=== PATIENT | male | born 1995 | race Caucasian/White ===

== ENCOUNTER 2019-07-02 04:16 | Observation (INO) ==
[2019-07-02 05:02] LABS: Basophils # (auto) 0.02 K/uL (0-0.2); Basophils % (auto) 0.2 %; Eosinophils % (auto) 0.9 %; Hematocrit (blood only) 47.7 % (42-52); Hemoglobin 16.6 g/dL (14.0-18.0); Immature Granulocytes # (auto) 0.03 K/uL (0.00-0.02); Immature Granulocytes % (auto) 0.3 %; Mean Corpuscular Hemoglobin 29.1 pg (25-34); Mean Corpuscular Hgb Conc 34.8 g/dL (32-36); Mean Corpuscular Volume 83.5 fL (80-100); Mean Platelet Volume 9.7 fL (7.4-10.4); Monocytes # (auto) 0.99 K/uL (0.11-0.59); Monocytes % (auto) 8.8 %; Neutrophils % (auto) 73.8 %; Platelet Count 188 K/uL (130-400); Red Blood Count 5.71 M/uL (4.7-6.1); White Blood Count 11.24 K/uL (4.8-10.8)
[2019-07-02 05:09] LABS: Appearance Urine Cloudy (Clear); Bacteria Urine Automated Negative (Negative); Blood Urine Negative (Negative); Cast Urine Automated 0 /lpf (0-5); Color Urine Dark Yellow; Glucose Urine UA Negative (Negative); Ketones Urine Negative (Negative); Leukocyte Esterase Urine Negative (Negative); Nitrite Urine Negative (Negative); Protein Urine Negative (Negative); RBC Urine Automated 0-4 /hpf (0-4); Specific Gravity Urine 1.029 (1.000-1.030); Urobilinogen Urine Negative (Negative)
[2019-07-02 05:10] LABS: Albumin Level 4.4 gm/dl (3.4-5.0); BUN Creatinine Ratio 17.5 (10-20); Creatinine Clr Calc Pharmacy 115.7 ml/min; Est GFR (Non-African American) 91.5; Potassium 3.7 mmol/L (3.5-5.1)
[2019-07-02 05:13] LABS: Albumin Globulin Ratio 1.2 (0.9-2); Bilirubin,Total 1.2 mg/dl (0.2-1); Globulin 3.6 gm/dl (2.5-4.0)
[2019-07-02] MEDS ORDERED: ACETAMINOPHEN 1,000 MG/100 ML VIAL IV STA (05:24)
[2019-07-02] MEDS ORDERED: ONDANSETRON INJ 2 MG/ML 2 ML VIAL IV STA (05:24)
[2019-07-02] MEDS ORDERED: SODIUM CHLORIDE 0.9% 1000ML 1,000 ML IV ONE (05:24)
--- NOTE | 2019-07-02 06:13 | Emergency Department Note ---
Entered by Jey French acting as a scribe for Helena Roberto DO History of Present Illness General Chief complaint: Abdominal Pain Stated complaint: SHARP ABDOMINAL PAIN Time Seen by Provider: 07/02/19 04:46 Source: patient History of Present Illness Onset (ago): day(s) (a few days ago) Location: abdomen Pain Consistency: + intermittent Maximum Pain Intensity: 8 Exacerbated By: + movement Associated symptoms: + other (Positive for nausea, "lots of burping," and black diarrhea. Negative for bloating, vomiting, fever, chills, and urinary symptoms.) The patient is a 24 year old male who presents to the emergency department with complaints of intermittent abdominal pain beginning a few days ago. The patient states that he has had abdominal pain, worst just right of his bellybutton, for the last few days. He notes that his pain worsened last night at 1900. He reports that movement worsens his pain and he states that it does not radiate into his testicles. He also complains of nausea and lots of burping. He notes that he has had 2-3 episodes of black diarrhea a day for the last 2-3 days. He denies any bloating, vomiting, fever, chills, urinary symptoms, new foods, and known sick contacts. He reports that he has not been taking anything for his pain. The patient states that he does not have a personal or family history of intestinal problems. States rare occasional heartburn, none recently. Home Medications Home Medications Medication Instructions Recorded Confirmed Type No Known Home Medications 07/02/19 07/02/19 History oxycodone-acetaminophen [Percocet] 1 tab PO Q4H PRN #18 tab 07/02/19 Rx Allergies Allergy/AdvReac Type Severity Reaction Status Date / Time No Known Allergies Allergy Unverified 07/02/19 05:23 Past Med/Surg History Medical History No chronic problems Family History Other No significant family history Social History (Updated 07/02/19 @ 05:19 by Jey French) Preferred Language: Lithuanian Communication Ability: Effective Heavy Forger Required: No Beliefs That Will Affect Care: None Current Living Situation: Family current occupational status: employed Other Information That Helps Us Care for You: No Feels Safe at Home: Yes Safety Concerns: Feels Safe At This Time Smoking Status: Never smoker Hx Alcohol Use: Yes Alcohol type: beer Hx Substance Use: No Review of Systems See HPI for pertinent positives & negatives. and A total of 10 systems reviewed and were otherwise negative Physical Exam Vital Signs Vital Signs - 24 hr 07/02/19 04:21 07/02/19 06:27 07/02/19 08:02 Temperature 36.6 C 36.7 C Temperature Source Oral Oral Pulse Rate 54 L Pulse Rate [Right Finger] 58 L 60 Pulse Rhythm [Right Finger] Pulse Strength [Right Finger] Respiratory Rate 18 16 16 Respiratory Effort / Characteristics Non-Labored Spontaneous Non-Labored Spontaneous Respiratory Depth Normal Normal Respiratory Pattern Regular Blood Pressure 117/78 Blood Pressure [Left Arm] 105/48 L 118/74 Blood Pressure Mean 91 Blood Pressure Mean [Left Arm] 67 88 Blood Pressure Position [Left Arm] Lying Pulse Oximetry 99 99 98 Oxygen Delivery Method Room Air Room Air Room Air Sepsis Recent Fever Within 48 Hours No Sepsis New/Unexplained Change in Mental Status No Sepsis Action Taken by Nursing No Action Required 07/02/19 09:14 07/02/19 09:51 Temperature 36.7 C 36.7 C Temperature Source Oral Oral Pulse Rate Pulse Rate [Right Finger] 69 78 Pulse Rhythm [Right Finger] Regular Pulse Strength [Right Finger] Normal Respiratory Rate 16 20 Respiratory Effort / Characteristics Non-Labored Spontaneous Respiratory Depth Normal Respiratory Pattern Regular Blood Pressure Blood Pressure [Left Arm] 136/73 154/78 H Blood Pressure Mean Blood Pressure Mean [Left Arm] 94 103 Blood Pressure Position [Left Arm] Sitting Pulse Oximetry 97 99 Oxygen Delivery Method Room Air Room Air Sepsis Recent Fever Within 48 Hours Sepsis New/Unexplained Change in Mental Status Sepsis Action Taken by Nursing GENERAL: alert, well appearing, well nourished, no distress, non-toxic EYE EXAM: normal conjunctiva, PERRL and EOM's grossly intact OROPHARYNX: no exudate, no erythema, lips, buccal mucosa, and tongue normal and mucous membranes are moist NECK: supple, no nuchal rigidity, no adenopathy, non-tender LUNGS: Clear to auscultation. Normal chest wall mechanics HEART: no murmurs, S1 normal and S2 normal ABDOMEN: abdomen soft, normo-active bowel sounds, no masses, no rebound or guarding. Tenderness to RLQ and right lateral mid abdomen. BACK: Back is symmetrical on inspection and there is no deformity, no midline tenderness, no CVA tenderness. SKIN: no rashes and no bruising UPPER EXTREMITIES: upper extremities are grossly normal. FROM, nml pulses b/l. LOWER EXTREMITIES: No pitting edema. FROM, nml pulses b/l. NEURO EXAM: Normal sensorium, cranial nerves II-XII grossly intact, normal speech, no gross weakness of arms, no gross weakness of legs. Course Course 0501: The patient was evaluated in room A11. A complete history and physical exam was performed. 705: I reevaluated and updated the patient. No diarrhea here. Pain improved. 729: The patient was signed out to Dr. Fuchs at the change of shift. Pt awaiting CT. Administered Medications Discontinued Medications Bacitracin (Bacitracin) Confirm Administered Dose 45 appln .ROUTE .STK-MED ONE Stop: 07/02/19 10:04 Last Admin: 07/02/19 11:15 Dose: 45 appln Documented by: [id number] Bupivacaine HCl (Marcaine 0.5% Mpf) Confirm Administered Dose 30 ml .ROUTE .STK- MED ONE Stop: 07/02/19 10:04 Last Admin: 07/02/19 11:16 Dose: 20 ml Documented by: [id number] Famotidine (Pepcid 20mg Iv Push) 20 mg IV ONE STA Stop: 07/02/19 07:02 Last Admin: 07/02/19 07:14 Dose: 20 mg Documented by: [id number] Sodium Chloride (Nss 1000ml) 1,000 mls @ 999 mls/hr IV .Q1H1M ONE Stop: 07/02/19 06:24 Last Infusion: 07/02/19 06:28 Dose: 0 mls/hr Documented by: [id number] Admin: 07/02/19 05:33 Dose: 999 mls/hr Documented by: [id number] Acetaminophen (Ofirmev) 1,000 mg in 100 mls @ 400 mls/hr IV NOW STA Stop: 07/02/19 05:38 Last Infusion: 07/02/19 05:55 Dose: 0 mls/hr Documented by: [id number] Admin: 07/02/19 05:33 Dose: 400 mls/hr Documented by: [id number] Cefoxitin Sodium (Mefoxin) 2,000 mg in 60 mls @ 100 mls/hr IV NOW STA Stop: 07/02/19 08:52 Last Admin: 07/02/19 08:49 Dose: Not Given Documented by: [id number] Piperacillin Sod/Tazobactam (Sod 3.375 gm/ Dextrose) 100 ml in 115 mls @ 230 mls/hr IV NOW STA Stop: 07/02/19 09:09 Last Infusion: 07/02/19 12:43 Dose: 0 mls/hr Documented by: [id number] Admin: 07/02/19 09:15 Dose: 230 mls/hr Documented by: [id number] Cefoxitin Sodium 2,000 mg/ (Dextrose) 60 mls @ 100 mls/hr IV Q6H [facility] Stop: 07/03/19 12:59 Last Infusion: 07/02/19 15:11 Dose: 0 mls/hr Documented by: [id number] Admin: 07/02/19 14:25 Dose: 100 mls/hr Documented by: [id number] Ioversol (Optiray 320 100ml) 94 ml IV ONCE PRN PRN Reason: Interaction Checking Stop: 07/06/19 07:40 Last Admin: 07/02/19 07:42 Dose: 94 ml Documented by: [id number] Lidocaine HCl (Xylocaine 1% (Local)) Confirm Administered Dose 20 ml .ROUTE .STK-MED ONE Stop: 07/02/19 10:05 Last Admin: 07/02/19 11:17 Dose: 20 ml Documented by: [id number] Ondansetron HCl (Zofran) 4 mg IV NOW STA Stop: 07/02/19 05:25 Last Admin: 07/02/19 05:33 Dose: 4 mg Documented by: [id number] Medical Decision Making Differential Diagnosis Differential diagnosis: Etiologies such as biliary colic, cholecystitis, hepatitis, pancreatitis, cardiac disease, pancreatitis, gastritis, peptic ulcer disease, appendicitis, cystitis, diverticulitis, mesenteric ischemia, inflammatory bowel disease, ileus, bowel obstruction, testicular torsion, aortic pathology, shingles, as well as others were considered. Medical Records Attestation: I reviewed the patient's medical records. Home Medications Current Medication List: was personally reviewed by me Laboratory Data Attestation: I reviewed the patient's lab results. Result diagrams: 07/02/19 04:32 07/02/19 04:32 Lab Results 07/02/19 07/02/19 07/02/19 Range/Units 04:30 04:32 04:32 WBC 11.24 H (4.8-10.8) K/uL RBC 5.71 (4.7-6.1) M/uL Hgb 16.6 (14.0-18.0) g/dL Hct 47.7 (42-52) % MCV 83.5 (80-100) fL MCH 29.1 (25-34) pg MCHC 34.8 (32-36) g/dL RDW Std Deviation 39.0 (36.4-46.3) fL RDW Coeff of Mary 13.0 (11.5-14.5) % Plt Count 188 (130-400) K/uL MPV 9.7 (7.4-10.4) fL Immature Gran % (Auto) 0.3 % Neut % (Auto) 73.8 % Lymph % (Auto) 16.0 % [place] % (Auto) 8.8 % Eos % (Auto) 0.9 % Baso % (Auto) 0.2 % Immature Gran # (Auto) 0.03 H (0.00-0.02) K/uL Neut # (Auto) 8.30 H (1.4-6.5) K/uL Lymph # (Auto) 1.80 (1.2-3.4) K/uL [place] # (Auto) 0.99 H (0.11-0.59) K/uL Eos # (Auto) 0.10 (0-0.5) K/uL Baso # (Auto) 0.02 (0-0.2) K/uL Sodium 139 (136-145) mmol/L Potassium 3.7 (3.5-5.1) mmol/L Chloride 106 (98-107) mmol/L Carbon Dioxide 32 (21-32) mmol/L Anion Gap 1.0 L (3-11) BUN 20 H (7-18) mg/dl Creatinine 1.12 (0.6-1.4) mg/dl Est Cr Clr Drug Dosing 115.7 ml/min Est GFR ( Amer) 106.0 Est GFR (Non-Af Amer) 91.5 BUN/Creatinine Ratio 17.5 (10-20) Glucose 95 (70-99) mg/dl Calcium 9.0 (8.5-10.1) mg/dl Total Bilirubin 1.2 H (0.2-1) mg/dl AST 20 (15-37) U/L ALT 32 (12-78) U/L Alkaline Phosphatase 97 (45-117) U/L Total Protein 8.0 (6.4-8.2) gm/dl Albumin 4.4 (3.4-5.0) gm/dl Globulin 3.6 (2.5-4.0) gm/dl Albumin/Globulin Ratio 1.2 (0.9-2) Lipase 89 (73-393) U/L Urine Color Dark Yellow Urine Appearance Cloudy A (Clear) Urine pH 6.0 (4.5-7.5) Ur Specific [place] 1.029 (1.000-1.030) Urine Protein Negative (Negative) Urine Glucose (UA) Negative (Negative) Urine Ketones Negative (Negative) Urine Blood Negative (Negative) Urine Nitrite Negative (Negative) Urine Bilirubin Negative (Negative) Urine Urobilinogen Negative (Negative) Ur Leukocyte Esterase Negative (Negative) Urine WBC (Auto) 1-5 (0-5) /hpf Urine RBC (Auto) 0-4 (0-4) /hpf U Hyaline Cast (Auto) 0 (0-5) /lpf U Epithel Cells (Auto) 5-10 H (0-5) /lpf Urine Bacteria (Auto) Negative (Negative) Blood Pressure Blood Pressure Findings: Normal blood pressure Blood Pressure Disposition: did not require urgent referral MDM Narrative Patient presenting with abdominal pain of unclear etiology. Patient with abdominal tenderness on bedside exam. Patient hemodynamically stable. No recurrent diarrhea while here. Patient signed out to Dr. Fuchs awaiting CT of the abdomen pelvis to rule out acute pathology. I did discuss differential diagnosis with the patient at bedside and he verbalized understanding. Patient otherwise well-appearing while in the emergency room. Impression & Plan Abdominal pain, Diarrhea Discharge Plan Visit Data *Final* Discharge Date/Time: 07/02/19 09:21 Chief Complaint: Abdominal Pain Stated Complaint: SHARP ABDOMINAL PAIN ED Provider: Luis Miguel Fuchs Discharge Problem: Abdominal pain, Diarrhea Patient Disposition: Still a Patient Discharge Instructions Interventions: ED Discharge Assessment Last Done: 07/02/19 09:21 Discharge Problem: Abdominal pain Qualifiers: Abdominal location: unspecified location Qualified Code(s): R10.9 - Unspecified abdominal pain Diarrhea Qualifiers: Diarrhea type: unspecified type Qualified Code(s): R19.7 - Diarrhea, unspecified The scribe's documentation has been prepared under my direction and personally reviewed by me in its entirety. I confirm that the note above accurately reflects all work, treatment, procedures, and medical decision making performed by me.
[2019-07-02 06:15] LABS: Bilirubin Urine Negative (Negative); Ictotest Urine Negative (Negative)
[2019-07-02] MEDS ORDERED: FAMOTIDINE 20MG/5ML IV PUSH IV STA (07:01)
[2019-07-02] MEDS ORDERED: IOVERSOL 100ml IV PRN (07:41)
--- NOTE | 2019-07-02 07:58 | CT Scan Report ---
CT abd pelvis oral and IV con CLINICAL HISTORY: abd pain, melena, diarrhea COMPARISON STUDY: None. TECHNIQUE: The patient was scanned following administration of dilute oral contrast, and in a dynamic helical fashion during intravenous administration of 94 cc of Optiray 320. A dose lowering techniqu e was utilized adhering to the principles of ALARA. CT DOSE: 459.69 mGy.cm FINDINGS: Lower chest: The heart is normal in size and configuration, without pericardial effusion. The lung ba ses and pleural spaces are clear. Liver: The contrast-enhanced liver is normal in size, contour, and attenuation. There is no intrahepa tic biliary ductal dilatation. The hepatic veins and portal veins are patent. Gallbladder: Unremarkable. Spleen: Normal in size and attenuation. Pancreas: Unremarkable. Adrenal glands: Unremarkable. Kidneys: There is symmetric renal cortical enhancement. The kidneys are normal in size without hydron ephrosis. Bowel: There are no transition zones to indicate bowel obstruction. There is no evidence of acute div erticulitis. There is cecal tip edema, and infiltration of periappendiceal fat. The appendix is mildl y thickened measuring 9 mm. There is minimal thickening of the terminal ileum which may be secondary phenomena. The appendiceal findings are concerning for acute appendicitis and surgical consultation i s advocated. Peritoneum: There is no intraperitoneal free air or abdominal ascites. Vasculature: The abdominal aorta is normal in course and caliber. Adenopathy: None. Pelvic viscera: The bladder, and pelvic viscera are unremarkable. Skeletal structures: No destructive osseous lesions are seen. IMPRESSION: 1. Thickened appendix with periappendiceal stranding and cecal tip edema. The findings are concerning for acute appendicitis and surgical consultation is advocated. 2. Minor thickening of the terminal ileum, a finding which likely is a secondary phenomenon to acute appendicitis. ACT 112: Negative or not required by law. Electronically signed by: Russell Allen M.D. 07/02/2019 7:57 AM
[2019-07-02] MEDS ORDERED: cefOXitin 2,000 MG/60 ML BAG IV STA (08:17)
--- NOTE | 2019-07-02 08:17 | Emergency Department Note ---
Entered by Jory Ayala acting as a scribe for Luis Miguel Fuchs DO ED Visit Note Patient is a 24-year-old male signed out to me by Dr. victoria with right lower quadrant pain diarrhea and dark tarry stools. I performed a rectal exam and it was heme-negative. He is acutely tender in the right lower quadrant with rebound and guarding. CT abdomen pelvis was completed and showed acute appendicitis with some surrounding inflammatory change. He rested comfortably. Updated bedside. Discussed with general surgery and a be evaluated for further work-up. : Abdominal pain Qualifiers: Abdominal location: unspecified location Qualified Code(s): R10.9 - Unspecified abdominal pain Diarrhea Qualifiers: Diarrhea type: unspecified type Qualified Code(s): R19.7 - Diarrhea, unspecified The scribe's documentation has been prepared under my direction and personally reviewed by me in its entirety. I confirm that the note above accurately reflects all work, treatment, procedures, and medical decision making performed by me.
[2019-07-02] MEDS ORDERED: PIPERACILL/TAZOBAC CONSULT ACTIVE PRN (08:40)
[2019-07-02] MEDS ORDERED: PIPERACILLIN/TAZOBACTAM 3.375 GM in DEXTROSE 5% 100 ML/100 ML BAG IV STA (08:40)
--- NOTE | 2019-07-02 09:10 | History & Physical Report ---
Date of Service July 02, 2019 Assessment & Plan (1) Acute appendicitis: 24 year-old otherwise healthy male resident of [place] who presented to ED with 3 day history of increasing RLQ abdominal pain with associated diarrhea and anorexia. CT scan showing dilated appendix at 9mm with periappendiceal stranding concerning for acute appendicitis. Plan: Patient is not a resident in [place] and is in location only today for a local job and then traveling to [place] tomorrow by car and then flight for 5 hours to another area in [place] for work for 3.5 weeks. [address] with patient CT scan findings and his duration of symptoms and recommendations of laparoscopic appendectomy to prevent perforation or sepsis. Also discussed IV antibiotics as sole treatment however that usually would consist of hospital stay for a few days. Given his circumstance he would like to proceed with appendectomy today. Will try to get him schedule early this morning so hopefully if procedure goes well and pain controlled he can be discharged later this evening for his travels tomorrow. If procedure difficulty or signs of perforation than his postop course could change and he understands this. IV Zosyn stat/preop Will go to med/surg post op Discussed post op restrictions and care Recommend JANEL stockings for travel, abdominal binder, and dressings upon discharge Will need to call patient with pathology reports. Discussed with Dr. Perales who agrees with above and is to see patient preoperatively. History of Present Illness Chief Complaint: RLQ abdominal pain Primary Care Provider: NO PCP Jay is a very pleasant 24 year-old male from [place] who is in the area for work who presented to emergency department with complaint of increasing right lower abdominal pain that started Sunday and progressively increased. Associated diarrhea and anorexia. Has never had similar pain in past. Movement makes pain worse. Works with [employer] and is traveling to [place] tomorrow for 3.5 weeks for work. Has flight scheduled tomorrow. Denies of fever, chills, nausea, vomiting, chest pain, shortness of breath, difficulty urinating, blood in stools, or blood in urine. No prior abdominal surgeries no home medications. ER work-up included labs which showed mild leukocytosis of 11k. Afebrile in ED. CT scan of abdomen and pelvis with oral and IV contrast showing dilated appendix at 9 mm with periappendiceal fat stranding and some thickening of the tip fo cecum and terminal ileum likely reactive from acute appendicitis. No evidence of perforation or abscess. Allergies Allergy/AdvReac Type Severity Reaction Status Date / Time No Known Allergies Allergy Unverified 07/02/19 05:23 Home Medications Home Medications Medication Instructions Recorded Confirmed Type No Known Home Medications 07/02/19 07/02/19 History Past Med/Surg History Family History (Updated 07/02/19 @ 05:19 by Jey French) Other No significant family history Social History (Updated 07/02/19 @ 05:19 by Jey French) Preferred Language: South Korean Communication Ability: Effective Vinyl Hanger Required: No Beliefs That Will Affect Care: None Current Living Situation: Family current occupational status: employed Other Information That Helps Us Care for You: No Feels Safe at Home: Yes Safety Concerns: Feels Safe At This Time Smoking Status: Never smoker Hx Alcohol Use: Yes Alcohol type: beer Hx Substance Use: No Review of Systems Review of Systems: All systems reviewed & are unremarkable except as noted in HPI & below Physical Exam Constitutional: WD/WN, vitals as above no acute distress Respiratory: normal respiratory effort, lungs clear to auscultation Cardiovascular: RRR, no murmur, no edema Gastrointestinal (Abdomen): Inspection/Auscultation: abdomen normal to inspection; abdomen not distended Percussion/Palpation: + abdomen tender (RLQ) and abdomen soft; no guarding and abdomen not rigid Skin: no rashes, warm and dry Psychiatric: A+Ox3, euthymic affect Results & Data Vital Signs (Past 12 Hours) Vital Signs Temp Pulse Pulse Resp BP BP Pulse Ox 07/02/19 06:27 36.7 C 58 L 16 105/48 L 99 07/02/19 04:21 36.6 C 54 L 18 117/78 99 Laboratory Results 07/02/19 07/02/19 07/02/19 Range/Units 04:32 04:32 04:30 WBC 11.24 H (4.8-10.8) K/uL RBC 5.71 (4.7-6.1) M/uL Hgb 16.6 (14.0-18.0) g/dL Hct 47.7 (42-52) % MCV 83.5 (80-100) fL MCH 29.1 (25-34) pg MCHC 34.8 (32-36) g/dL RDW Std Deviation 39.0 (36.4-46.3) fL RDW Coeff of Mary 13.0 (11.5-14.5) % Plt Count 188 (130-400) K/uL MPV 9.7 (7.4-10.4) fL Immature Gran % (Auto) 0.3 % Neut % (Auto) 73.8 % Lymph % (Auto) 16.0 % [place] % (Auto) 8.8 % Eos % (Auto) 0.9 % Baso % (Auto) 0.2 % Immature Gran # (Auto) 0.03 H (0.00-0.02) K/uL Neut # (Auto) 8.30 H (1.4-6.5) K/uL Lymph # (Auto) 1.80 (1.2-3.4) K/uL [place] # (Auto) 0.99 H (0.11-0.59) K/uL Eos # (Auto) 0.10 (0-0.5) K/uL Baso # (Auto) 0.02 (0-0.2) K/uL Sodium 139 (136-145) mmol/L Potassium 3.7 (3.5-5.1) mmol/L Chloride 106 (98-107) mmol/L Carbon Dioxide 32 (21-32) mmol/L Anion Gap 1.0 L (3-11) BUN 20 H (7-18) mg/dl Creatinine 1.12 (0.6-1.4) mg/dl Est Cr Clr Drug Dosing 115.7 ml/min Est GFR ( Amer) 106.0 Est GFR (Non-Af Amer) 91.5 BUN/Creatinine Ratio 17.5 (10-20) Glucose 95 (70-99) mg/dl Calcium 9.0 (8.5-10.1) mg/dl Total Bilirubin 1.2 H (0.2-1) mg/dl AST 20 (15-37) U/L ALT 32 (12-78) U/L Alkaline Phosphatase 97 (45-117) U/L Total Protein 8.0 (6.4-8.2) gm/dl Albumin 4.4 (3.4-5.0) gm/dl Globulin 3.6 (2.5-4.0) gm/dl Albumin/Globulin Ratio 1.2 (0.9-2) Lipase 89 (73-393) U/L Urine Color Dark Yellow Urine Appearance Cloudy A (Clear) Urine pH 6.0 (4.5-7.5) Ur Specific [place] 1.029 (1.000-1.030) Urine Protein Negative (Negative) Urine Glucose (UA) Negative (Negative) Urine Ketones Negative (Negative) Urine Blood Negative (Negative) Urine Nitrite Negative (Negative) Urine Bilirubin Negative (Negative) Urine Urobilinogen Negative (Negative) Ur Leukocyte Esterase Negative (Negative) Urine WBC (Auto) 1-5 (0-5) /hpf Urine RBC (Auto) 0-4 (0-4) /hpf U Hyaline Cast (Auto) 0 (0-5) /lpf U Epithel Cells (Auto) 5-10 H (0-5) /lpf Urine Bacteria (Auto) Negative (Negative) Diagnostic Findings CT abd pelvis oral and IV con CLINICAL HISTORY: abd pain, melena, diarrhea COMPARISON STUDY: None. TECHNIQUE: The patient was scanned following administration of dilute oral contrast, and in a dynamic helical fashion during intravenous administration of 94 cc of Optiray 320. A dose lowering technique was utilized adhering to the principles of ALARA. CT DOSE: 459.69 mGy.cm FINDINGS: Lower chest: The heart is normal in size and configuration, without pericardial effusion. The lung bases and pleural spaces are clear. Liver: The contrast-enhanced liver is normal in size, contour, and attenuation. There is no intrahepatic biliary ductal dilatation. The hepatic veins and portal veins are patent. Gallbladder: Unremarkable. Spleen: Normal in size and attenuation. Pancreas: Unremarkable. Adrenal glands: Unremarkable. Kidneys: There is symmetric renal cortical enhancement. The kidneys are normal in size without hydronephrosis. Bowel: There are no transition zones to indicate bowel obstruction. There is no evidence of acute diverticulitis. There is cecal tip edema, and infiltration of periappendiceal fat. The appendix is mildly thickened measuring 9 mm. There is minimal thickening of the terminal ileum which may be secondary phenomena. The appendiceal findings are concerning for acute appendicitis and surgical consultation is advocated. Peritoneum: There is no intraperitoneal free air or abdominal ascites. Vasculature: The abdominal aorta is normal in course and caliber. Adenopathy: None. Pelvic viscera: The bladder, and pelvic viscera are unremarkable. Skeletal structures: No destructive osseous lesions are seen. IMPRESSION: 1. Thickened appendix with periappendiceal stranding and cecal tip edema. The findings are concerning for acute appendicitis and surgical consultation is advocated. 2. Minor thickening of the terminal ileum, a finding which likely is a secondary phenomenon to acute appendicitis. Code Status & VTE Plan VTE Prophylaxis Plan VTE Prophylaxis will be ordered: Yes
[2019-07-02] MEDS ORDERED: ROCURONIUM BROMIDE 10 MG/ML 5 ML VIAL ONE (09:13)
[2019-07-02] MEDS ORDERED: LIDOCAINE HCL 2% 2 ML VIAL/AMP(20MG/ML) INFIL ONE (09:13)
[2019-07-02] MEDS ORDERED: MIDAZOLAM HCL 1 MG/ML 2ML VIAL ONE (09:13)
[2019-07-02] MEDS ORDERED: DEXAMETHASONE SOD INJ 4 MG/ML VIAL ONE (09:13)
[2019-07-02] MEDS ORDERED: NEOSTIGMINE METHYLSULFATE 5 MG/5 ML SYR ONE (09:13)
[2019-07-02] MEDS ORDERED: ONDANSETRON INJ 2 MG/ML 2 ML VIAL ONE (09:13)
[2019-07-02] MEDS ORDERED: GLYCOPYRROLATE 0.2 MG/ML VIAL ONE ×2 (09:13→10:52)
[2019-07-02] MEDS ORDERED: PROPOFOL IV EMULSION 10 MG/ML 20 ML VIAL IV ONE ×2 (09:13→10:50)
[2019-07-02] MEDS ORDERED: fentaNYL citrate 100 MCG/2 ML VIAL ONE ×3 (09:13→10:35)
--- NOTE | 2019-07-02 09:37 | History & Physical Bridge Note ---
Date of Service July 02, 2019 History & Physical Bridge Note I have examined the patient, reviewed the History & Physical and in the interval since the performance of the History & Physical I have noted the following changes of clinical significance: no changes noted, I saw pt, and reviewed pt's H/P labs, CT scan with pt, IMP: acute appendicitis, I recommend to do laparoscopic appendectomy possible open , D?W benefits, risks and alternatives of the surgery, the risks - infection, bleeding, injury jorge, abscess, pt understood, he agrees with the surgery, I answered all questions,
[2019-07-02] MEDS ORDERED: ATROPINE SULFATE 0.1 MG/ML 10ML SYR IV PRN (09:59)
[2019-07-02] MEDS ORDERED: ePHEDrine sulfate 50 MG/ML AMP IV PRN (09:59)
[2019-07-02] MEDS ORDERED: ONDANSETRON INJ 2 MG/ML 2 ML VIAL IV PRN ×2 (09:59→11:22)
[2019-07-02] MEDS ORDERED: fentaNYL citrate 100 MCG/2 ML VIAL IV PRN (09:59)
[2019-07-02] MEDS ORDERED: HYDROmorphone INJ 2 MG/ML SYR/VIAL IV PRN (09:59)
--- NOTE | 2019-07-02 09:59 | Anesthesiology Consultation ---
Date of Service July 02, 2019 Assessment & Plan Chart Review Chart Review: Acceptable Risk for Surgery ASA [id number] Proposed Anesthesia Anesthesia Type: General Risk / Benefits Reviewed With: PT / POA / Parent / Guardian, Accepts Plan and Informed Consent Obtained History Surgery Operation Date: 07/02/19 08:30 Proposed Procedures p Laparoscopic Appendectomy - Hellen Perales MD Height/Weight Height: 5 ft 10 in Weight: 91.5 kg Allergies Allergy/AdvReac Type Severity Reaction Status Date / Time No Known Allergies Allergy Unverified 07/02/19 05:23 Medications Home Medications Medication Instructions Recorded Confirmed Last Taken No Known Home Medications 07/02/19 07/02/19 Unknown Active Medications Generic Name Dose Route Start Last Admin Trade Name Freq PRN Reason Stop Dose Admin Ioversol 94 ml 07/02/19 07:41 07/02/19 07:42 Optiray 320 100ml IV 07/06/19 07:40 94 ml ONCE PRN Administration Interaction Checking NPO Date Last Intake of Fluids: 07/01/19 Time Last Intake of Fluids: 19:00 Last Intake of Fluids Comment: did have ct prep at er Date Last Intake of Solids: 07/01/19 Time Last Intake of Solids: 12:00 Past Medical History Medical History No chronic problems Exercise / Class Metabolic Activity II 4-5 Yardwork/Stairs/Walk up hill Past Family History Family History Other No significant family history Past Anesthesia History No Hx of Anesthesia Complications and No Family Hx of Anesthesia Complications History of PONV No Hx of PONV and No Hx of Motion Sickness Social History Smoking Status: Never smoker Hx Alcohol Use: Yes Alcohol type: beer alcohol intake frequency: a few times a month Hx Substance Use: No Review of Systems denies fever/cough/ colds/ chest pain/ SOB/ TOBIAS denies ND/CVA/Seizure Physical Exam Vital Signs Last Vital Signs Temp 36.7 C 07/02/19 09:51 Pulse 78 07/02/19 09:51 Resp 20 07/02/19 09:51 BP 154/78 H 07/02/19 09:51 Pulse Ox 99 07/02/19 09:51 ENMT Mouth: no TMJ abnormality and no dentition abnormality Thyromental Distance: > or= 3.5 Finger Breadths Mallampati Class: II Neck neck extension not limited Respiratory normal respiratory effort; no respiratory distress Auscultation: lungs clear to auscultation bilaterally Cardiovascular Rate/Rhythm: regular rate and regular rhythm Neurologic moves all extremities Psychiatric Orientation: alert and oriented x 3 Testing Laboratory Results 07/02/19 04:32 07/02/19 04:32 Urine Color Dark Yellow 07/02/19 04:30 Urine Appearance Cloudy (Clear) A 07/02/19 04:30 Urine pH 6.0 (4.5-7.5) 07/02/19 04:30 Ur Specific [place] 1.029 (1.000-1.030) 07/02/19 04:30 Urine Protein Negative (Negative) 07/02/19 04:30 Urine Glucose (UA) Negative (Negative) 07/02/19 04:30 Urine Ketones Negative (Negative) 07/02/19 04:30 Urine Nitrite Negative (Negative) 07/02/19 04:30 Ur Leukocyte Esterase Negative (Negative) 07/02/19 04:30 Urine WBC (Auto) 1-5 /hpf (0-5) 07/02/19 04:30 Urine RBC (Auto) 0-4 /hpf (0-4) 07/02/19 04:30 U Hyaline Cast (Auto) 0 /lpf (0-5) 07/02/19 04:30 U Epithel Cells (Auto) 5-10 /lpf (0-5) H 07/02/19 04:30 Urine Bacteria (Auto) Negative (Negative) 07/02/19 04:30
[2019-07-02] MEDS ORDERED: BUPIVACAINE 0.5 % 5 MG/1 ML MPF 30ML VIAL ONE (10:03)
[2019-07-02] MEDS ORDERED: BACITRACIN OINT 15 GM TUBE ONE (10:03)
[2019-07-02] MEDS ORDERED: LIDOCAINE HCL 1% 20 ML VIAL ONE (10:04)
[2019-07-02] MEDS ORDERED: KETOROLAC 30 MG/ML VIAL ONE (11:13)
--- NOTE | 2019-07-02 11:16 | Post Operative Brief Note ---
Immediate Post Op Note v1 Date of Surgery July 02, 2019 Pre & Post Diagnosis Operation Date: 07/02/19 08:30 Pre-Op Diagnosis: Acute Appendicitis Post-Op Diagnosis: Acute Appendicitis I identified the patient and participated in the time-out.: Yes Procedure Operation Date: 07/02/19 08:30 Actual Procedures p Laparoscopic Appendectomy - Hellen Perales MD Surgeon Hellen Perales MD Supervisor [employer] LUAN Dinh Estimated Blood Loss 10 Findings Consistent with Post-Op Diagnosis Fluids 1100ml Specimens appendix Anesthesia Type General Complications none Disposition Accompanied Patient To Recovery: Yes Disposition: Recovery Room Overlapping Procedure I was immediately available: during the entire case.
--- NOTE | 2019-07-02 12:05 | Anesthesiology Progress Note ---
Date of Service July 02, 2019 Anesthesia Post Procedure Vital Signs Vital Signs: Temp Pulse Pulse Pulse Resp BP BP 07/02/19 11:55 56 L 18 141/74 H 07/02/19 11:45 61 18 143/70 H 07/02/19 11:39 36.1 C L 79 20 150/70 H 07/02/19 09:51 36.7 C 78 20 154/78 H 07/02/19 09:14 36.7 C 69 16 136/73 07/02/19 08:02 60 16 118/74 07/02/19 06:27 36.7 C 58 L 16 105/48 L 07/02/19 04:21 36.6 C 54 L 18 117/78 Pulse Ox 07/02/19 11:55 100 07/02/19 11:45 100 07/02/19 11:39 100 07/02/19 09:51 99 07/02/19 09:14 97 07/02/19 08:02 98 07/02/19 06:27 99 07/02/19 04:21 99 Pain Intensity Abdomen: Pain Intensity: 2 Transfer of Care Handoff Completed per policy Notes Mental Status: alert / awake / arousable and participated in evaluation Patient Amnestic to Procedure: Yes Nausea / Vomiting: adequately controlled Pain: adequately controlled Airway Patency, RR, SpO2: stable & adequate BP & HR: stable & adequate Hydration State: stable & adequate Anesthetic Complications: no major complications apparent and Pt Satisfied with anesthetic care
--- NOTE | 2019-07-02 12:06 | Operative Report ---
DATE OF OPERATION: 07/02/2019 PREOPERATIVE DIAGNOSIS: Acute appendicitis. POSTOPERATIVE DIAGNOSIS: Acute appendicitis. OPERATION: Laparoscopic appendectomy. SURGEON: Hellen Perales MD. DEDENTER: Esthela Ashley PA-C. ANESTHESIA: General. ESTIMATED BLOOD LOSS: About 10 mL. FINDINGS: Acute appendicitis. COMPLICATIONS: None. INDICATIONS FOR THE PROCEDURE: This is a 24-year-old gentleman who presented to the ED with acute abdominal pain. The patient had a CT scan diagnosis of acute appendicitis. I recommended to do the laparoscopic appendectomy, possible open. I did talk to the patient about the benefit, risk, and alternate procedure. I indicated the risks may include but not limited to such as bleeding, infection, abscess, injury to the bowel. The patient understands and he signed informed consent and I answered all questions. DETAILS OF PROCEDURE: We brought the patient to the OR, put the patient in the supine position. The patient received SCD on bilateral legs to prevent DVT. Also, patient received 3.375 grams of Zosyn IV for prophylactic antibiotic. The patient received general anesthesia without difficulties. Abdomen was prepped and draped in routine sterile fashion. After time out, I injected local anesthesia by using 1% lidocaine mixed with 0.5% Marcaine just above the umbilicus and then made a small incision just above the umbilicus, opened fascia and opened peritoneum under direct vision, put a Kimmie trocar in, connected to CO2 to create pneumoperitoneum, flow rate at 6 liters per minute, pressure not more than 14 mmHg. Once we got a nice pneumoperitoneum, we put the camera in, looked around the abdomen, shows normal finding of small bowel, large bowel; however, appendix shows enlarged with inflammation, confirming the diagnosis of acute appendicitis. Then, we put another two 5 mm trocars in the left lower quadrant area. Once all trocars in, we mobilized the appendix, found the patient had acute appendicitis. The patient with some inflammation on the base of the cecum. At this moment, we used the harmonic to take down appendiceal, rechecked, no active bleeding. Then I used a 45 mm Endo-MARIAJOSE staple for transection on the base of the appendix, rechecked and the staple line intact. No leak, no active bleeding. Then we removed appendix through the catch bag. Then, we reinserted the Kimmie trocar in, connected to CO2 to create pneumoperitoneum, again looked around the abdomen, no active bleeding, no leak from the staple line and we removed all trocars under direct vision. No active bleeding from the trocar sites. Pneumoperitoneum was released. Then, I closed the umbilical incision, fascial layer by using #1 Vicryl [id number] x2, closed subcutaneous layer by using 2-0 Vicryl interruptedly, closed skin by using 4-0 Vicryl continuous running, closed another two 5 mm trocar site skin-only by using 4-0 Vicryl. Then we put the dressing on. The patient tolerated the procedure well. All instrument, needle and sponge count were correct x2 at the end of case. The patient was transported to recovery room in stable condition. I attest to the content of the Intraoperative Record and any orders documented therein. Any exception s are noted below.
[2019-07-02] MEDS ORDERED: LACTATED RINGER'S 1,000 ML IV SCH (12:36)
[2019-07-02] MEDS ORDERED: ACETAMINOPHEN 325 MG TAB PO PRN (12:36)
[2019-07-02] MEDS ORDERED: HYDROmorphone INJ 0.5 MG/0.5 ML SYR IV PRN (12:36)
[2019-07-02] MEDS ORDERED: OXYCODONE/ACETAMINOPHEN 5mg/325mg TAB PO PRN (12:36)
[2019-07-02] MEDS ORDERED: cefOXitin 2,000 MG in DEXTROSE 5% 50 ML IV SCH (13:00)
[2019-07-02 13:34] VITALS: O2SAT 95
[2019-07-02 15:31] VITALS: BP 108/58; PULSE 60; TEMP 97.9
--- NOTE | 2019-07-02 16:52 | Surgery Progress Note ---
Date of Service July 02, 2019 Assessment & Plan (1) Acute appendicitis: 5 hours postop laparoscopic appendectomy vitals stable minimal incisional pain, preop pain resolved Okay for discharge again reviewed discharge instructions extensively with patient given his upcoming travel Rx for Percocet prn pain sent to [facility] pharmacy Will need to call office in 1 week for follow-up and to obtain pathology results reviewed warning symptoms with patient to be further evaluated by provider Subjective patient evaluated about 5 hours postop. doing well walking hallway and has minimal pain. preop pain resolved tolerated full liquids, no n/v passing gas feels good Physical Exam Constitutional: WD/WN, vitals as above no acute distress Respiratory: normal respiratory effort; no respiratory distress Psychiatric: A+Ox3, euthymic affect Results & Data Vital Signs (Past 12 Hours) Vital Signs Temp Pulse Pulse Resp BP Pulse Ox 07/02/19 15:29 36.6 C 60 16 108/58 L 95 07/02/19 14:32 36.9 C 68 18 114/58 L 95 07/02/19 13:33 36.9 C 71 18 105/61 95 07/02/19 13:04 36.5 C 60 18 106/45 L 96 07/02/19 12:30 37 C 72 16 118/55 L 97 07/02/19 12:15 69 15 131/55 L 98 07/02/19 12:05 36.4 C L 58 L 18 134/71 96 07/02/19 11:55 56 L 18 141/74 H 100 07/02/19 11:45 61 18 143/70 H 100 07/02/19 11:39 36.1 C L 79 20 150/70 H 100 07/02/19 09:51 36.7 C 78 20 154/78 H 99 07/02/19 09:14 36.7 C 69 16 136/73 97 07/02/19 08:02 60 16 118/74 98 07/02/19 06:27 36.7 C 58 L 16 105/48 L 99
--- NOTE | 2019-07-03 10:54 | Discharge Summary ---
Date of Service July 03, 2019 Admission HPI Per Admitting Provider Jay is a very pleasant 24 year-old male from [place] who is in the area for work who presented to emergency department with complaint of increasing right lower abdominal pain that started Sunday and progressively increased. Associated diarrhea and anorexia. Has never had similar pain in past. Movement makes pain worse. Works with [employer] and is traveling to [place] tomorrow for 3.5 weeks for work. Has flight scheduled tomorrow. Denies of fever, chills, nausea, vomiting, chest pain, shortness of breath, difficulty urinating, blood in stools, or blood in urine. No prior abdominal surgeries no home medications. ER work-up included labs which showed mild leukocytosis of 11k. Afebrile in ED. CT scan of abdomen and pelvis with oral and IV contrast showing dilated appendix at 9 mm with periappendiceal fat stranding and some thickening of the tip fo cecum and terminal ileum likely reactive from acute appendicitis. No evidence of perforation or abscess. Principal Diagnosis Acute appendicitis Discharge Data Allergies Allergy/AdvReac Type Severity Reaction Status Date / Time No Known Allergies Allergy Unverified 07/02/19 05:23 Consultations 07/02/19 08:15 ED Decision to Admit Stat Procedures Performed Operation Date: 07/02/19 08:30 Actual Procedures p Laparoscopic Appendectomy - Hellen Perales MD Ordered Studies 07/02/19 05:24 CT Abd and Pelvis [CT abd pelvis oral and IV con] Stat Hospital Course (1) Acute appendicitis: Patient was taken to operating room for laparoscopic appendectomy possible open. Patient found to have acute appendicitis without perforation or abscess. Patient tolerated procedure well and was transferred to recovery and then to medical/surgical floor for postop care. Patient was evaluated 5 hours postop and was ambulating hallway. Vitals stable, preop pain resolved and postop pain soreness only at incisions. He was doing very well postop and was discharged home in evening of POD # 0. Discharge instructions, restrictions, and travel instructions were extensively reviewed with patient. Since he is out of state, advised to call office in 1 week for follow-up and to review pathology. Patient understood. Total Time Total Time Spent Total Time Spent (In Minutes): 45 Total Time Includes: Examination of the Patient, Discharge Planning and Medication Reconciliation Discharge Plan Discharge Items Patient Disposition: Home - Self-Care Reason For Visit: ACUTE ABDOMINAL PAIN Discharge Diagnosis: Acute appendicitis Activity: Per Instructions section Non-emergency contact: Surgeon Call non-emergency contact if: you have any medication questions, your pain is worsening, your pain is unusual for you, your pain is concerning for you, you have a fever, your temperature is above 101, your wound has increased redness, your wound has increased drainage and your wound pain has increased Follow-up/Referrals: PCP,NO [Primary Care Provider] - Diet: Regular Addtl Attending Provider Instructions: No heavy lifting over 20 pounds for 3 to 4 weeks Walking is encouraged daily to prevent blood clots from forming in your legs. You may shower in 4 day(s). Sponge bath and wash hair in meantime. Keep dressings clean and dry until showering. After 4 days you may completely shower and remove outer dressings. Replace dressings daily for at least one week. Leave steri strips on incisions for 7 days and then remove. They may fall off on their own that is okay. No submerging incisions underwater for 2 weeks (no bathing, swimming, or hot tubs) Wear abdominal binder for support during day while you are working as we discussed. Wear JANEL stockings during long car drive and plane flight to help increase blood circulation in your legs and prevent blood clots from forming. Recommend getting out of car after 1 hour of travel and walk 5-10 minutes as well as moving legs and walking aisle during plane flight. You will be given prescription for narcotic pain medication for moderate to severe pain. This medication may make you drowsy. It can also cause constipation. Take as directed as needed for pain. You may take extra strength Tylenol/Ibuprofen as needed for mild pain. - You can alternate Tylenol and Ibuprofen throughout the day. (For example start with Tylenol and then 3 hours later Ibuprofen then 3 hours later Tylenol) - You can take 650 mg of Tylenol every 6 hours as needed and/or 600 mg of Ibuprofen every 6 hours as needed (take Ibuprofen with food) - If you take Tylenol while taking Percocet, DO NOT exceed 3000 mg of Tylenol in 24 hour period. - Percocet has 325 mg of Tylenol in each pill. For constipation take stool softener (such as OTC Colace daily) and drink plenty of water. Call surgical office at [phone] if you have any questions or concerns. Call office in 1 week and we can also review your pathology results over phone with you. If you have any concerns or concerning symptoms such as fever, increasing pain, dizziness, incisional redness or purulent drainage from incisions, bulge at incisions with pain and inability to push back in, I would recommend further evaluation either in emergency department of urgent care clinic. Pending Studies at Discharge: Yes (Appendix pathology, will need to call with results) Stand-Alone Forms: My [facility] Medications and DC Order Prescriptions: New oxycodone-acetaminophen [Percocet] 5-325 mg Tablet 1 tab PO Q4H PRN (Reason: pain) Qty: 18 RF: 0 No Action No Known Home Medications RF: 0 Discharge Orders: Discharge Order (Routine); Ordered 07/02/19 Ordered By: Esthela Ashley Admission Data Admit Date/Time: 07/02/19 11:22 Attending Provider: Hellen Perales Admit Provider: Hellen Perales Primary Care Provider: PCP,NO Other Providers: Hellen Perales Other DC Date/Time DO NOT enter until pt leaves facility: 07/02/19 18:34
== END 2019-07-02 18:34 | disposition home or self-care (01) ==
LOC: ED 04:16 → 3N 09:21 → ASU 09:21
DX: K35.80 Unspecified acute appendicitis